=== PATIENT | female | born 1955 | race Caucasian/White ===

== ENCOUNTER 2023-04-30 11:26 | Emergency (ER) | payer MEDICARE, OTHER, SELFPAY ==
[2023-04-30 11:42] VITALS: BP 154/95
[2023-04-30 11:56] LABS: % Basophils 0.4 % (0-2); % Eosinophils 1.1 % (0-6); % Immature Granulocytes 0.3 % (0-0.5); % Lymphocytes 20.2 % (20.5-51.1); % Monocytes 4.7 % (1.7-9.3); % Neutrophils 73.3 % (42.2-75.2); Absolute Eosinophils 0.1 10^3/uL (0-0.7); Absolute Monocytes 0.5 10^3/uL (0.1-0.6); Absolute Neutrophils 7.3 10^3/uL (1.4-6.5); Hematocrit 45.8 % (37.0-47.0); Hemoglobin 15.4 g/dL (12.0-16.0); Mean Corp Hgb Conc. 33.6 g/dL (33.0-37.0); Mean Corpuscular Hgb 29.7 pg (27.0-31.0); Mean Corpuscular Volume 88.2 fL (81.0-99.0); Mean Platelet Volume 9.5 fL (7.4-10.4); Nucleated Red Blood Cells % 0 %; Platelet Count 398 10^3/uL (130-400); Red Blood Cell Count 5.19 10^6/uL (4.20-5.40); Red Cell Dist. Width 13.4 % (11.5-14.5)
[2023-04-30 12:15] LABS: ALT (SGPT) 18 U/L (0-35); AST (SGOT) 24 U/L (14-36); Albumin 3.7 g/dl (3.5-5.0); Alkaline Phosphatase 128 U/L (38-126); Blood Urea Nitrogen 10 mg/dl (7-17); Calcium 9.6 mg/dl (8.4-10.2); Carbon Dioxide 24 mmol/L (22-30); Chloride 106 mmol/L (98-107); Glucose 105 mg/dl (70-99); Lipase 72 U/L (23-300); Potassium 4.5 mmol/L (3.5-5.1); Sodium 137 mmol/L (135-145); Total Bilirubin 0.5 mg/dl (0.2-1.3); Total Protein 6.7 g/dl (6.3-8.2); eGFR > 60.00
[2023-04-30 12:19] LABS: Troponin I < 0.012 ng/ml
--- NOTE | 2023-04-30 15:16 | ED.GENMED ---
History of Present Illness
<Leroy Melgoza DO - Last Filed: 04/30/23 15:20>
General
Chief Complaint: Abdominal Pain
Source: patient
Exam Limitations: none
Time Seen by Provider: 04/30/23 15:04
Nursing documentation reviewed up to this point in time: agreed with
Travel History
Have you had any contact with someone who has COVID-19?: No
Do you have any symptoms of coronavirus? Fever > 100 degrees, chills, cough, shortness of breath, sore throat, loss of taste or smell, muscle aches, or headache?: No
History of Present Illness
History of Present Illness:
68-year-old female presents emergency department complaint of epigastric pain since Friday, worse after food. She took Pepto-Bismol and had mild relief.
Past History
<Leroy Melgoza DO - Last Filed: 04/30/23 15:20>
Past History
ED Past Medical History: Asthma, Other (RA) and Other (Pericarditis)
ED Past Surgical History: Gynecological and Orthopedic
Social History
Tobacco: Former smoker
Alcohol: None
Drug: None
Personal:
Living: with family
Employment: Not employed
<Leah Russell MD - Last Filed: 05/01/23 01:37>
Family History
Family History: Other
Review of Systems
<Leroy Melgoza DO - Last Filed: 04/30/23 15:20>
Review of Systems
Allergies reviewed?: Yes
All Other Systems: Not applicable
Constitutional: Reports no symptoms
EENT: Reports no symptoms
Respiratory: Reports no symptoms
Cardiac: Reports no symptoms
ABD/GI: Reports abdominal pain
: Reports no symptoms
Musculoskeletal: Reports no symptoms
Skin: Reports no symptoms
Neurological: Reports no symptoms
Endocrine: Reports no symptoms
Hematologic/Lymphatic: Reports no symptoms
Psychiatric: Reports no symptoms
Phy Exam
<Leroy Melgoza, DO - Last Filed: 04/30/23 15:20>
Physical Exam
Physical Exam:
Physical Exam
General: no apparent distress, not acutely ill
Neck: supple. no meningeal signs. normal posterior pharynx
Heart: s1/s2 regular rate and rhythm, no murmur. equal radial
pulses.
HEENT: Pupils equal round reactive to light, EOMI
Lungs: no acute respiratory distress. clear bilaterally
Abdomen: normal bowel sounds. Epigastric tenderness, right upper quadrant tenderness. no CVAT
Neuro: alert and oriented. no focal neurological deficits cranial nerves II through XII intact
Skin: no rash
Psychiatric: well kept. interactive and cooperative
Extremities: no edema. no calf tenderness. negative homans. good distal pulses
Course
<Leroy Melgoza, DO - Last Filed: 04/30/23 15:20>
Orders/Labs/Results
Orders:
Orders
04/30/23 11:43
EKG [Electrocardiogram (*1)] Urgent
Reason for Study: Abdominal Pain
EKG- Treatment ONCE
04/30/23 11:46
Complete Blood Count/With Diff Urgent
Comprehensive Metabolic Panel Urgent
Lipase Urgent
Troponin I Urgent
04/30/23 15:14
IV Insert/Care/Rem.- Treatment PRN
0.9% Sodium Chloride 1000 ml [Nss] 1,000 ml IV BOLUS
Morphine Sulfate 4 mg IV NOW STA
Ondansetron Injectable [Zofran] 4 mg IV NOW STA
US Abdomen Complete/Upper Urgent
Comment:
Reason For Exam: epigastric pain; nausea
04/30/23 18:30
CT Abd/Pel (IV only)-[facility] only Urgent
Comment:
Reason For Exam: epigastric abdominal pain 4 days
Abnormal Lab Results
04/30/23
11:46
Absolute Neuts (auto) 7.3 H 10^3/uL
(1.4-6.5)
Lymphocytes % 20.2 L %
(20.5-51.1)
Glucose 105 H mg/dl
(70-99)
Alkaline Phosphatase 128 H U/L
(38-126)
04/30/23 11:46
04/30/23 11:46
Vital Signs
Initial and Last Documented VS:
Initial Vital Signs
Temp Pulse Resp BP Pulse Ox
98.4 F 101 17 154/95 99
04/30/23 11:42 04/30/23 11:42 04/30/23 11:42 04/30/23 11:42 04/30/23 11:42
Last Documented Vital Signs
Temp Pulse Resp BP Pulse Ox
98.4 F 96 21 142/119 94
04/30/23 11:42 04/30/23 22:00 04/30/23 22:15 04/30/23 22:00 04/30/23 22:15
<Leah Russell MD - Last Filed: 05/01/23 01:37>
Orders/Labs/Results
Orders:
Orders
04/30/23 11:43
EKG [Electrocardiogram (*1)] Urgent
Reason for Study: Abdominal Pain
EKG- Treatment ONCE
04/30/23 11:46
Complete Blood Count/With Diff Urgent
Comprehensive Metabolic Panel Urgent
Lipase Urgent
Troponin I Urgent
04/30/23 15:14
IV Insert/Care/Rem.- Treatment PRN
0.9% Sodium Chloride 1000 ml [Nss] 1,000 ml IV BOLUS
Morphine Sulfate 4 mg IV NOW STA
Ondansetron Injectable [Zofran] 4 mg IV NOW STA
US Abdomen Complete/Upper Urgent
Comment:
Reason For Exam: epigastric pain; nausea
04/30/23 18:30
CT Abd/Pel (IV only)-[facility] only Urgent
Comment:
Reason For Exam: epigastric abdominal pain 4 days
Abnormal Lab Results
04/30/23
11:46
Absolute Neuts (auto) 7.3 H 10^3/uL
(1.4-6.5)
Lymphocytes % 20.2 L %
(20.5-51.1)
Glucose 105 H mg/dl
(70-99)
Alkaline Phosphatase 128 H U/L
(38-126)
04/30/23 11:46
04/30/23 11:46
Vital Signs
Initial and Last Documented VS:
Initial Vital Signs
Temp Pulse Resp BP Pulse Ox
98.4 F 101 17 154/95 99
04/30/23 11:42 04/30/23 11:42 04/30/23 11:42 04/30/23 11:42 04/30/23 11:42
Last Documented Vital Signs
Temp Pulse Resp BP Pulse Ox
98.4 F 96 21 142/119 94
04/30/23 11:42 04/30/23 22:00 04/30/23 22:15 04/30/23 22:00 04/30/23 22:15
<Leah Russell MD - Last Filed: 05/01/23 01:37>
*Radiology
Radiology exam reviewed: radiology read reviewed
*Critical Care Note
Total Time (30-74mins, 75-104mins- exclusive of procedures): Not Applicable
<Leah Russell MD - Last Filed: 05/01/23 01:37>
Update Note
Update Note:
11:00 PM patient continues to look well. Patient will be given Prevacid and encouraged to follow-up with GI. Patient comfortable with plan
ED Attending Note
<Leroy Melgoza, DO - Last Filed: 04/30/23 15:20>
-
Portions of this chart may have been created with voice recognition software.� Occasional wrong word or��sound alike� substitutions may have occurred due to the inherent limitations of voice recognition software.
Discharge Plan
Departure
Patient Disposition: Home (Routine Discharge)
Date of Disposition: 04/30/23
Time of Disposition: 23:01
Patient with high blood pressure during this ER visit?: Yes
Condition: Good
Covid-19: Not Applicable
Discharge Problem:
Abdominal pain
Instructions: Abdominal Pain, BLOOD PRESSURE
Prescriptions:
No Action
albuterol sulfate [Ventolin HFA] 90 MCG/PUFF HFA aerosol inhaler
1 puff inhalation R Q6 PRN (Reason: SOB)
ondansetron 4 MG tablet,disintegrating
4 mg PO Q6H PRN (Reason: nausea)
hydroxychloroquine [Plaquenil] 200 mg Tablet
400 mg PO DAILY
fluticasone propion-salmeterol [Advair HFA] 115-21 mcg/actuation HFA aerosol inhaler
2 puff INHALATION BID
albuterol sulfate 2.5 mg /3 mL (0.083 %) solution for nebulization
2.5 mg continuous nebulization R Q8 PRN (Reason: SOB/WHEEZING)
amitriptyline 25 mg tablet
25 mg PO HS PRN (Reason: SLEEP)
cyclobenzaprine 10 mg tablet
10 mg PO TID PRN (Reason: MUSCLE PAIN)
prednisone 5 mg tablet
5 mg PO DAILY
Hold Instructions: Resume on 10/10/22.
methotrexate sodium 2.5 mg tablet
12.5 mg PO TU@2200
methotrexate sodium 2.5 mg tablet
12.5 mg PO WE@0800
folic acid 1 mg tablet
1 mg PO Q48H
tramadol 50 mg tablet
50 mg PO Q6 PRN (Reason: pain)
Rx Instructions:
this gives patient bad headaches so only occaisonally takes these
ipratropium bromide 0.02 % solution
2.5 ml continuous nebulization R Q8 PRN (Reason: sob/wheezing alternates with albuterol neb)
budesonide-formoterol [Symbicort] 80-4.5 mcg/actuation Hfa Aerosol Inhaler
2 puff inhalation R BID Qty: 10.2 0RF
prednisone 5 mg tablet
5 mg PO DIRECTED Qty: 60 0RF
Rx Instructions:
Starting October 02, 2022: 20 mg/day x 2 days; 15 mg/day x 3 days; 10 mg/day x 3 days; then 5 mg/day daily
cefdinir 300 mg capsule
300 mg PO Q12H Qty: 4 0RF
prednisone 10 mg tablet
10 mg PO DAILY Qty: 30 0RF
oxycodone-acetaminophen [Percocet] 5-325 mg tablet
1 tab PO Q6HPRN PRN (Reason: pain) Qty: 10 0RF
Referrals:
Arpan Darnell MD [Active] - (Call for next open appointment)
Kecia Evans MD [Family Provider] -
Activity Restrictions/Additional Instructions:
Take 30 mg of Prevacid, which is sold [id number], once a day in the morning before breakfast for 14 days straight.
Interventions
Interventions:
*Risk Screen - Suicide Last Done: 04/30/23 18:58
*General Assessment Last Done: 04/30/23 11:42
*Neglect/Abuse Screening Last Done: 04/30/23 18:58
ED- Fall Risk Assessment Last Done: 04/30/23 22:49
*ED COVID-19 Vaccine History Last Done: 04/30/23 11:42
*Nursing Disposition Last Done: 04/30/23 23:13
RI-Myitgs-Hbeunpytxd Assessment Last Done: 04/30/23 18:57
Discharge Date and Time
Discharge Date/Time: 04/30/23 23:14
[2023-04-30] MEDS: NSS 1000 IV (15:39)
[2023-04-30] MEDS: ZOFRAN 4 MG IV (15:40)
[2023-04-30] MEDS: MORPHINE SULFATE 4 MG IV (15:40)
[2023-04-30 18:00] VITALS: BP 149/92
[2023-04-30 19:00] VITALS: BP 153/82
[2023-04-30 20:00] VITALS: BP 173/100
[2023-04-30 21:16] VITALS: BP 128/91
[2023-04-30 22:00] VITALS: BP 142/119
== END 2023-04-30 23:14 | disposition home or self-care (01) ==
LOC: EMR 11:26
PROVIDERS: Emergency Medicine; EMERGENCY PHYSICIAN Emergency Medicine; FAMILY PHYSICIAN Family Medicine; REFERRING PHYSICIAN Internal Medicine Rheumatology
DX: R10.13 Epigastric pain (principal); R03.0 Elevated blood-pressure reading, without diagnosis of hypertension; Z87.891 Personal history of nicotine dependence
CPT/HCPCS: 99285; 96374; 96375; 96361; 74177; 76700; 80053; 83690; 84484; 85025; 93005; Q9967

== ENCOUNTER → 2023-10-06 08:20 | Outpatient (REF) | payer MEDICARE, OTHER, SELFPAY | LOC: RCS 08:20 | PROVIDERS: ATTENDING PHYSICIAN Internal Medicine Cardiovascular Disease; FAMILY PHYSICIAN Physician Assistant Medical | DX: R07.89 Other chest pain (principal) | CPT/HCPCS: 93017; 93350; Q9957 ==